=== PATIENT | female | born 1940 | race African-American/Black ===

== ENCOUNTER 2020-10-20 18:20 | Inpatient (IN) | payer MEDICARE ==
[~2020-10-20] VITALS: Ht 167.6 cm; Wt 85.4 kg
[~2020-10-20 18:20] MED LIST: ACETAMINOPHEN325 MG PO; AUGMENTIN 500-1 EACH PO; COLACE100 MG PO; HYDROCODON-ACE1 EAC2 PO; KETOROLAC TROME10 MG PO; LACTINEX1 EACH PO; LEVEMIR VI100 UNITS/ SC; MILK OF MAGNESIA PO; VERAPAMIL ER180 M1 PO; VITAMIN D3 PO; ZESTRIL5 MG PO
[2020-10-20 19:32] LABS: BILIRUBIN NEGATIVE (NEGATIVE); BLOOD NEGATIVE Ery/uL (NEGATIVE); CLARITY CLEAR (CLEAR); COLOR YELLOW (YELLOW); GLUCOSE (U) NORMAL (NORMAL); LEUKOCYTES 2+ Leu/uL (NEGATIVE); NITRITE POSITIVE (NEGATIVE); PROTEIN NEGATIVE (NEGATIVE); SPECIFIC GRAVITY 1.025 (1.001-1.030); UROBILINOGEN 0.2 mg/dL (0.2-1.0)
[2020-10-20 19:37] LABS: AMPHETAMINES NEGATIVE (NEGATIVE); BARBITURATES NEGATIVE (NEGATIVE); ECSTASY (MDMA) NEGATIVE (NEGATIVE); MARIJUANA (THC) NEGATIVE (NEGATIVE); METHADONE NEGATIVE (NEGATIVE); OPIATES NEGATIVE (NEGATIVE); OXYCODONE NEGATIVE (NEGATIVE)
[2020-10-20 19:38] LABS: BASOPHIL 0.8 % (0-2); HCT 39.6 % (37.0-47.0); HGB 12.4 g/dl (12.5-16.0); LYMPHOCYTE 33.4 % (15-48); MCH 27.9 pg (25.0-31.0); MCHC 31.3 g/dL (32.0-36.0); MONOCYTE 9.3 % (0-12); MPV 10.5 fL (6.0-9.5); NEUTROPHIL 52.7 % (41-80); NRBC 0; PLT 171 K/uL (150-400); RBC 4.45 M/uL (4.20-5.40); RDW 13.5 % (11.5-14.0)
[2020-10-20 19:41] LABS: BACTERIA 3+
[2020-10-20 19:57] LABS: ALBUMIN 3.4 g/dL (3.4-5.0); BILIRUBIN - TOTAL 0.2 mg/dL (0.2-1.0); BUN/CREAT RATIO (CALC) 23.1 RATIO; CREATININE 1.04 mg/dL (0.51-0.95); GLOBULIN (CALCULATION) 3.6 g/dL; POTASSIUM 4.6 mmol/L (3.5-5.1)
[2020-10-20] MEDS ORDERED: COLACE100 MG PO ×2 (22:08→22:10)
[2020-10-20] MEDS ORDERED: ZESTRIL5 MG PO (22:11)
[2020-10-20] MEDS ORDERED: VERAPAMIL ER180 MG PO (22:12)
[2020-10-20] MEDS ORDERED: VITAMIN D3125 MC1 PO (22:14)
[2020-10-20] MEDS ORDERED: VITAMIN D310 MC1 PO (22:15)
[2020-10-20] MEDS ORDERED: LEVEMIR VI100 UNITS/ SC (22:16)
[2020-10-20] MEDS ORDERED: VOLTAREN **OUT50 MG PO (22:17)
--- NOTE | 2020-10-20 23:14 | NUR ---
PATIENT ARRIVED TO UNIT VIA STRETCHER. PATIENT IS APHASIC AND UNABLE TO ANSWER ASSESSMENT QUESTIONS. DAUGHTER WAS CONTACTED TO OBTAIN HISTORY. DAUGHTER STATES THE PATIENT IS JUST BEING STUBBORN AND NOT ANSWERING STAFF. PATIENT IS A RESIDENT AT [facility] IN [facility]. DAUGHTER'S NAME IS KIRAN BREWER AND IS POA. SHE CAN BE REACHED AT [phone]. [facility] SENT IN MEDICATION LIST.
[2020-10-21 08:11] LABS: HCT 40.7 % (37.0-47.0); HGB 12.8 g/dl (12.5-16.0); MCH 28.3 pg (25.0-31.0); MCHC 31.4 g/dL (32.0-36.0); MCV 89.8 fL (78.0-100.0); MPV 10.4 fL (6.0-9.5); RBC 4.53 M/uL (4.20-5.40); RDW 13.3 % (11.5-14.0); WBC 7.8 K/uL (4.0-10.5)
[2020-10-21 08:31] LABS: ALBUMIN 3.4 g/dL (3.4-5.0); BILIRUBIN - TOTAL 0.4 mg/dL (0.2-1.0); BUN/CREAT RATIO (CALC) 21.3 RATIO; CREATININE 0.89 mg/dL (0.51-0.95); GLOBULIN (CALCULATION) 3.7 g/dL; TOTAL PROTEIN 7.1 g/dL (6.4-8.2)
[2020-10-21 12:58] LABS: CHOLESTEROL 180 mg/dL (<200); HDL 44 mg/dL (40-60); LDL - DIRECT 106 mg/dL (<100); TRIGLYCERIDES 100 mg/dL (<150)
--- NOTE | 2020-10-22 16:19 | NUR ---
SPOKE WITH GRANDDAUGHTER WHO IS POA. SHE WANTS PT TO RETURN TO [facility]. TC TO [facility] THEY ARE WILL FOR PT. TO RETURN TO [facility]. PT WILL PT/OT/ST AND NURSING. REFERRAL SENT TO [facility] ADVISED [facility]EE WILDER.
[2020-10-23 15:56] LABS: HCT 43.6 % (37.0-47.0); HGB 12.9 g/dl (12.5-16.0); MCH 28.3 pg (25.0-31.0); MCHC 29.6 g/dL (32.0-36.0); MCV 95.6 fL (78.0-100.0); MPV 10.3 fL (6.0-9.5); RBC 4.56 M/uL (4.20-5.40); RDW 13.4 % (11.5-14.0); WBC 6.3 K/uL (4.0-10.5)
[2020-10-23 16:40] LABS: ALBUMIN 3.2 g/dL (3.4-5.0); BILIRUBIN - TOTAL 0.4 mg/dL (0.2-1.0); BUN/CREAT RATIO (CALC) 15.6 RATIO; CREATININE 0.9 mg/dL (0.51-0.95); GLOBULIN (CALCULATION) 3.3 g/dL; POTASSIUM 4.2 mmol/L (3.5-5.1); TOTAL PROTEIN 6.5 g/dL (6.4-8.2)
--- NOTE | 2020-10-25 07:27 | NUR ---
PT REFUSES ANY MEDICATION BY INJECTION. EDUCATED PT ON BLOOD SUGAR AND NEED FOR INSULIN BUT SHE CONTINUES TO REFUSE. NOTIFIED ANILA ARMSTRONG APRN. MESSAGE PASSED ALONG TO DAY SHIFT.
--- NOTE | 2020-10-25 18:44 | NUR ---
PATIENT DISCHARGE VIA W/C WITH GRAND DAUGHTER. D/C BACK HOME WITH HOME HEALTH
== END 2020-10-25 18:30 | disposition home health service (06) | DRG 682 ==
LOC: FER 18:20 → FMS 20:24
PROVIDERS: Emergency Medicine; Nurse Practitioner; ADMIT Internal Medicine
DX: N17.9 Acute kidney failure, unspecified (principal); G93.41 Metabolic encephalopathy; N30.00 Acute cystitis without hematuria; R47.01 Aphasia; B96.20 Unspecified Escherichia coli [E. coli] as the cause of diseases classified elsewhere; F03.90 Unspecified dementia, unspecified severity, without behavioral disturbance, psychotic disturbance, mood disturbance, and anxiety; E11.9 Type 2 diabetes mellitus without complications; G93.89 Other specified disorders of brain; D32.0 Benign neoplasm of cerebral meninges; I10 Essential (primary) hypertension; M19.90 Unspecified osteoarthritis, unspecified site; R13.10 Dysphagia, unspecified; Z79.4 Long term (current) use of insulin; Z79.899 Other long term (current) drug therapy
CPT/HCPCS: 36415; 70450; 70551; 80053; 80061; 80305; 81001; 82962; 83036; 84484; 85025; 87040; 87076; 87088; 87186; 92523; 92526; 93005; 93880; 97162; 97166; 97530-GP; 97535; J0360; J0696; J1650; J7030; U0002

== ENCOUNTER 2021-05-09 15:02 | Inpatient (IN) | payer MEDICARE ==
[~2021-05-09] VITALS: Ht 167.6 cm; Wt 88.7 kg
[~2021-05-09 15:02] MED LIST changes: +VERAPAMIL ER180 MG PO; +VITAMIN D310 MC1 PO; +VITAMIN D3125 MC1 PO; +VOLTAREN **OUT50 MG PO
[2021-05-09 16:45] LABS: BASOPHIL 0.4 % (0-2); EOSINOPHIL 1.9 % (0-7); HCT 38.9 % (37.0-47.0); HGB 12.2 g/dl (12.5-16.0); LYMPHOCYTE 12.9 % (15-48); MCH 27.7 pg (25.0-31.0); MCHC 31.4 g/dL (32.0-36.0); MCV 88.4 fL (78.0-100.0); MONOCYTE 8.9 % (0-12); MPV 10.5 fL (6.0-9.5); NEUTROPHIL 75.5 % (41-80); NRBC 0; PLT 182 K/uL (150-400); RDW 13.3 % (11.5-14.0); WBC 13.9 K/uL (4.0-10.5)
[2021-05-09 16:57] LABS: BILIRUBIN NEGATIVE (NEGATIVE); BLOOD 2+ Ery/uL (NEGATIVE); CLARITY HAZY (CLEAR); COLOR YELLOW (YELLOW); GLUCOSE (U) NORMAL (NORMAL); LEUKOCYTES TRACE Leu/uL (NEGATIVE); NITRITE POSITIVE (NEGATIVE); PROTEIN NEGATIVE (NEGATIVE); SPECIFIC GRAVITY >=1.030 (1.001-1.030); UROBILINOGEN 0.2 mg/dL (0.2-1.0); pH 5.5 (5.0-9.0)
[2021-05-09 17:01] LABS: ALBUMIN 3.2 g/dL (3.4-5.0); BILIRUBIN - TOTAL 0.3 mg/dL (0.2-1.0); BUN/CREAT RATIO (CALC) 15.5 RATIO; CREATININE 0.97 mg/dL (0.51-0.95); GLOBULIN (CALCULATION) 3.7 g/dL; POTASSIUM 4.6 mmol/L (3.5-5.1); TOTAL PROTEIN 6.9 g/dL (6.4-8.2)
[2021-05-09 17:05] LABS: BACTERIA 4+; MUCOUS LARGE; SQUAMOUS EPITHELIAL CELLS >50
[2021-05-10] MEDS ORDERED: HYDROCODON-ACE1 EAC2 PO (05:07)
[2021-05-10 06:11] LABS: BASOPHIL 0.3 % (0-2); EOSINOPHIL 2.9 % (0-7); HCT 37.5 % (37.0-47.0); HGB 11.9 g/dl (12.5-16.0); LYMPHOCYTE 18.9 % (15-48); MCH 27.5 pg (25.0-31.0); MCHC 31.7 g/dL (32.0-36.0); MCV 86.6 fL (78.0-100.0); MONOCYTE 6.9 % (0-12); MPV 10.6 fL (6.0-9.5); NEUTROPHIL 70.7 % (41-80); NRBC 0; PLT 168 K/uL (150-400); RBC 4.33 M/uL (4.20-5.40); RDW 13.3 % (11.5-14.0); WBC 9.9 K/uL (4.0-10.5)
[2021-05-10 06:42] LABS: ALBUMIN 2.9 g/dL (3.4-5.0); BILIRUBIN - TOTAL 0.3 mg/dL (0.2-1.0); BUN/CREAT RATIO (CALC) 13.1 RATIO; CREATININE 0.84 mg/dL (0.51-0.95); GLOBULIN (CALCULATION) 3.9 g/dL; POTASSIUM 3.8 mmol/L (3.5-5.1); TOTAL PROTEIN 6.8 g/dL (6.4-8.2)
[2021-05-11 06:34] LABS: BASOPHIL 0.7 % (0-2); EOSINOPHIL 2.8 % (0-7); HCT 34.8 % (37.0-47.0); HGB 11.2 g/dl (12.5-16.0); MCH 27.7 pg (25.0-31.0); MCHC 32.2 g/dL (32.0-36.0); MCV 86.1 fL (78.0-100.0); MONOCYTE 7.7 % (0-12); MPV 10.4 fL (6.0-9.5); NEUTROPHIL 64.5 % (41-80); NRBC 0; PLT 182 K/uL (150-400); RBC 4.04 M/uL (4.20-5.40); RDW 13.2 % (11.5-14.0); WBC 9.2 K/uL (4.0-10.5)
[2021-05-11 07:29] LABS: ALBUMIN 2.7 g/dL (3.4-5.0); BILIRUBIN - TOTAL 0.4 mg/dL (0.2-1.0); CREATININE 0.89 mg/dL (0.51-0.95); GLOBULIN (CALCULATION) 3.7 g/dL; POTASSIUM 3.6 mmol/L (3.5-5.1); TOTAL PROTEIN 6.4 g/dL (6.4-8.2)
[2021-05-11] MEDS ORDERED: CIPRO500 MG PO (09:34)
[2021-05-11] MEDS ORDERED: METRONIDAZOLE500 MG PO (09:34)
--- NOTE | 2021-05-11 10:32 | NUR ---
SPOKE WITH PT. DAUGHTER, KIRAN BREWERROBYN. SHE ADVISED THAT HER MOTHER RESIDES AT [facility] AND SHE WISHES FOR HER TO RETURN TO [facility]). THE DAUGHTER STATES THAT HER MOTHER USES A WHEELCHAIR ON OCCASION, [employer] IS NOT IMMOBILE. DR. HERNANDEZ WOULD LIKE PT TO HAVE HH FOR PT/OT.
== END 2021-05-11 21:00 | disposition home or self-care (01) | DRG 386 ==
LOC: FER 15:02 → FMS 18:32
PROVIDERS: Allergy & Immunology Allergy; Emergency Medicine; Nurse Practitioner; ADMIT Internal Medicine
DX: K51.30 Ulcerative (chronic) rectosigmoiditis without complications (principal); N30.01 Acute cystitis with hematuria; Z20.822 Contact with and (suspected) exposure to COVID-19; I10 Essential (primary) hypertension; E11.9 Type 2 diabetes mellitus without complications; F03.90 Unspecified dementia, unspecified severity, without behavioral disturbance, psychotic disturbance, mood disturbance, and anxiety; M19.90 Unspecified osteoarthritis, unspecified site; Z90.49 Acquired absence of other specified parts of digestive tract; Z79.4 Long term (current) use of insulin; Z79.899 Other long term (current) drug therapy
CPT/HCPCS: 36415; 80053; 81001; 85025; 87076; 87088; 87186; 97162; 97165; 97530-GP; 97535; J0696; J1650; J1815; U0002

== ENCOUNTER 2021-09-18 09:31 | Emergency (ER) | payer MEDICARE ==
[~2021-09-18 09:31] MED LIST changes: +CIPRO500 MG PO; +METRONIDAZOLE500 MG PO
[2021-09-18 10:58] LABS: BILIRUBIN NEGATIVE (NEGATIVE); BLOOD NEGATIVE Ery/uL (NEGATIVE); CLARITY CLEAR (CLEAR); COLOR YELLOW (YELLOW); GLUCOSE (U) NORMAL (NORMAL); LEUKOCYTES 1+ Leu/uL (NEGATIVE); NITRITE POSITIVE (NEGATIVE); PROTEIN NEGATIVE (NEGATIVE); UROBILINOGEN 0.2 mg/dL (0.2-1.0); pH 6.5 (5.0-9.0)
[2021-09-18 11:00] LABS: BASOPHIL 0.8 % (0-2); EOSINOPHIL 2.9 % (0-7); HCT 38.3 % (37.0-47.0); HGB 12.2 g/dl (12.5-16.0); LYMPHOCYTE 24.8 % (15-48); MCH 27.8 pg (25.0-31.0); MCHC 31.9 g/dL (32.0-36.0); MCV 87.2 fL (78.0-100.0); MONOCYTE 7.9 % (0-12); MPV 10.4 fL (6.0-9.5); NEUTROPHIL 63.4 % (41-80); NRBC 0; PLT 199 K/uL (150-400); RBC 4.39 M/uL (4.20-5.40); RDW 13.2 % (11.5-14.0); WBC 6.6 K/uL (4.0-10.5)
[2021-09-18 11:10] LABS: BACTERIA 4+
[2021-09-18 11:19] LABS: ALBUMIN 3.3 g/dL (3.4-5.0); BILIRUBIN - TOTAL 0.3 mg/dL (0.2-1.0); BUN/CREAT RATIO (CALC) 13.6 RATIO; CREATININE 0.88 mg/dL (0.51-0.95); GLOBULIN (CALCULATION) 3.9 g/dL; POTASSIUM 4.1 mmol/L (3.5-5.1); TOTAL PROTEIN 7.2 g/dL (6.4-8.2)
[2021-09-18] MEDS ORDERED: CEPHALEXIN500 MG PO (11:58)
== END 2021-09-18 13:32 | disposition home or self-care (01) ==
LOC: FER 09:31
PROVIDERS: Emergency Medicine
DX: N39.0 Urinary tract infection, site not specified (principal); J18.9 Pneumonia, unspecified organism; E11.22 Type 2 diabetes mellitus with diabetic chronic kidney disease; I12.9 Hypertensive chronic kidney disease with stage 1 through stage 4 chronic kidney disease, or unspecified chronic kidney disease; N18.9 Chronic kidney disease, unspecified; J44.9 Chronic obstructive pulmonary disease, unspecified; F03.90 Unspecified dementia, unspecified severity, without behavioral disturbance, psychotic disturbance, mood disturbance, and anxiety; Z20.822 Contact with and (suspected) exposure to COVID-19
CPT/HCPCS: 36415; 70450; 71045; 80053; 81001; 84484; 85025; 87076; 87088; 87186; 93005; J0696; P9612; U0002

== ENCOUNTER 2021-10-21 14:36 | Emergency (ER) | payer MEDICARE ==
[~2021-10-21 14:36] MED LIST changes: +CEPHALEXIN500 MG PO
[2021-10-21 15:50] LABS: BASOPHIL 0.5 % (0-2); EOSINOPHIL 2.9 % (0-7); HCT 39.3 % (37.0-47.0); HGB 12.4 g/dl (12.5-16.0); LYMPHOCYTE 20.4 % (15-48); MCH 27.7 pg (25.0-31.0); MCHC 31.6 g/dL (32.0-36.0); MCV 87.7 fL (78.0-100.0); MONOCYTE 7.5 % (0-12); MPV 10.2 fL (6.0-9.5); NEUTROPHIL 68.6 % (41-80); NRBC 0; PLT 194 K/uL (150-400); RBC 4.48 M/uL (4.20-5.40); RDW 13.4 % (11.5-14.0); WBC 7.6 K/uL (4.0-10.5)
[2021-10-21 16:05] LABS: BILIRUBIN NEGATIVE (NEGATIVE); BLOOD NEGATIVE Ery/uL (NEGATIVE); CLARITY CLEAR (CLEAR); COLOR YELLOW (YELLOW); GLUCOSE (U) NORMAL (NORMAL); LEUKOCYTES NEGATIVE Leu/uL (NEGATIVE); NITRITE NEGATIVE (NEGATIVE); PROTEIN NEGATIVE (NEGATIVE); UROBILINOGEN 0.2 mg/dL (0.2-1.0)
== END 2021-10-21 20:48 | disposition home or self-care (01) ==
LOC: FER 14:36
PROVIDERS: Emergency Medicine
DX: R53.1 Weakness (principal); E11.9 Type 2 diabetes mellitus without complications; I10 Essential (primary) hypertension; F03.90 Unspecified dementia, unspecified severity, without behavioral disturbance, psychotic disturbance, mood disturbance, and anxiety; Z20.822 Contact with and (suspected) exposure to COVID-19
CPT/HCPCS: 36415; 71045; 81003; 85025; U0002